=== PATIENT | female | born 1975 | race African-American/Black ===

== ENCOUNTER 2017-05-31 11:22 | Emergency (ER) | payer OTHER ==
[~2017-05-31] VITALS: Ht 167.6 cm; Wt 68.2 kg
[~2017-05-31 11:22] MED LIST: PREN0.01 PO; Z.0.NO CURRENT MEDS; ZITH500T PO
[2017-05-31 11:23] VITALS: BP 227/125; PULSE 75; RESP 16; TEMP 99.5; O2SAT 100
[2017-05-31] MEDS ORDERED: LISI-515 PO (11:40)
[2017-05-31 11:43] VITALS: BP 207/115; PULSE 81; RESP 18; O2SAT 100
[2017-05-31] MEDS ORDERED: SILV1CRE20 TOPICAL (11:46)
[2017-05-31] MEDS ORDERED: CEPH-460 PO (11:46)
--- NOTE | 2017-05-31 11:55 | PD ---
HPI Chief Complaint: Burn Time Seen by Provider: 11:34 Travel History International Travel<30 days: No Contact w/Intl Traveler<30days: No Traveled to known affect area: No History of Present Illness HPI 41 y f with burn to the left forearm that occurred while at work today. States that she spilled some green baptiste juice on her forearm and developed a burn. This was about 1 hour ago. Patient denies fever, chills. Also denies numbness , tingling to the area. Describes the pain as burning and moderate. Patient states she has a history of high blood pressure and has doubled up on her medication secondary to her high blood pressure. States in the past week she has had headaches but now does not have a headache. She currently does not primary care physician. [facility] Past Medical History Cardiovascular Problems: Yes (HEART MURMUR) Diminished Hearing: No ?: Not LMP: 05/06/17 Social History Alcohol Use: Yes (occasional) Tobacco Use: Yes (1 PPD) Substance Use: No Allergies-Medications (Allergen,Severity, Reaction): Coded Allergies: No Known Allergies (Verified , 10/01/15) Reported Meds & Prescriptions Reported Meds & Active Scripts Active Lisinopril 40 Mg Tab 40 Mg PO DAILY Keflex (Cephalexin) 500 Mg Cap 500 Mg PO Q8H 7 Days Silvadene Topical (Silver Sulfadiazine) 1 % Cream 1 Applic TOPICAL DIRECTED 5 Days Reported Lisinopril 20 Mg Tab 20 Mg PO DAILY Review of Systems Except as stated in HPI: all other systems reviewed are Neg Physical Exam Narrative GENERAL: Well-developed well-nourished distress SKIN: Focused skin assessment warm/dry. Left forearm- 3 cm x 2 and half centimeter round, open secondary burn, mild blistering to the distal aspect of the burn with skin sloughing HEAD: Atraumatic. Normocephalic. EYES: Pupils equal and round. No scleral icterus. No injection or drainage. CARDIOVASCULAR: Regular rate and rhythm. No murmur appreciated. RESPIRATORY: No accessory muscle use. Clear to auscultation. Breath sounds equal bilaterally. MUSCULOSKELETAL: No obvious deformities. No clubbing. No cyanosis. No edema. NEUROLOGICAL: Awake and alert. No obvious cranial nerve deficits. Motor grossly within normal limits. Normal speech. PSYCHIATRIC: Appropriate mood and affect; insight and judgment normal. Data Data Last Documented VS Vital Signs Date Time Temp Pulse Resp B/P (MAP) Pulse Ox O2 Delivery O2 Flow Rate FiO2 05/31/17 13:59 (143) 05/31/17 12:30 78 18 100 Room Air 05/31/17 11:23 99.5 Orders Orders Tramadol (Ultram) (05/31/17 12:00) Clonidine (Catapres) (05/31/17 12:45) MDM Medical Decision Making Medical Screen Exam Complete: Yes Emergency Medical Condition: Yes Differential Diagnosis Left forearm- first degree versus second degree versus third degree burn Narrative Course 41 y f with burn to the left forearm that occurred while at work today. States that she spilled some green baptiste juice on her forearm and developed a burn. This was about 1 hour ago. Patient denies fever, chills. Also denies numbness , tingling to the area. Describes the pain as burning and moderate. Patient states she has a history of high blood pressure and has doubled up on her medication secondary to her high blood pressure. States in the past week she has had headaches but now does not have a headache. She currently does not primary care physician. Vital signs- blood pressure very elevated. Clonidine for very high BP. Physical exam- second degree burn left forearm Keflex and Silvadene Wound care instructions given Extended time in the ER secondary to her BP elevation. Advised to follow-up with primary care physician regarding high blood pressure and wound Diagnosis Primary Impression: Hypertension Qualified Codes: I10 - Essential (primary) hypertension Additional Impression: Burn of forearm, left, second degree Qualified Codes: T22.212A - Burn of second degree of left forearm, initial encounter Referrals: [facility] Additional Instructions: Use Silvadene 1-2 times a day Keep wound clean and dry. Use gauze to cover site, especially at work. Use Tylenol or Motrin per package instructions for pain relief. Stop lisinopril 20, start lisinopril 40 and follow up with a primary care physician. Scripts Lisinopril (Lisinopril) 40 Mg Tab 40 MG PO DAILY for Blood Pressure Management, #30 TAB 0 Refills Prov: Kristie Bartlett MD 05/31/17 Cephalexin (Keflex) 500 Mg Cap 500 MG PO Q8H for Infection for 7 Days, #21 CAP 0 Refills Prov: Kristie Bartlett MD 05/31/17 Silver Sulfadiazine Topical (Silvadene Topical) 1 % Cream 1 APPLIC TOPICAL DIRECTED for Wound Management for 5 Days, #50 GM 0 Refills Prov: Kristie Bartlett MD 05/31/17 Disposition: 01 DISCHARGE HOME Condition: Stable Alisa Shepard May 31, 2017 11:55
[2017-05-31] MEDS ORDERED: LISI40TA PO (11:56)
[2017-05-31] MEDS ORDERED: traMADol HCL 50 MG TAB PO ONE (12:00)
[2017-05-31 12:30] VITALS: BP 214/130; PULSE 78; RESP 18; O2SAT 100
[2017-05-31] MEDS ORDERED: cloNIDine HCL 0.1 MG TAB PO ONE (12:45)
[2017-05-31 13:55] VITALS: BP 194/118
== END 2017-05-31 14:00 | disposition home or self-care (01) ==
LOC: NEPD 11:22
DX: T22.212A Burn of second degree of left forearm, initial encounter (principal); I10 Essential (primary) hypertension; X12.XXXA Contact with other hot fluids, initial encounter; Y99.0 Civilian activity done for income or pay
CPT/HCPCS: 99284